=== PATIENT | female | born 1950 | race Caucasian/White ===

== ENCOUNTER → 2018-02-02 | Outpatient (CLI) | payer MEDICARE, OTHER ==
[~2018-02-02] MED LIST: AMIO200T42 PO; ASPI-515 PO; ATOR10TA PO; CARV3.1212 PO; DOXY100C2 PO; ENOX80SY4 SQ; LAMO100T5 PO; LEVE500T53 PO; LEVE750T37 PO; LEVO75TA PO; LISI-466 PO; MULT-224 PO; MULT-464 PO; OXYC5TAB3 PO; POLY17PO5 PO; SERT100T PO; SULF1TAB23 PO; WARF4TAB PO
== END ==
LOC: CFH 15:40
PROVIDERS: ATTEND Internal Medicine Geriatric Medicine
DX: S32.391A Other fracture of right ilium, initial encounter for closed fracture (principal); X58.XXXA Exposure to other specified factors, initial encounter; Y93.89 Activity, other specified; Y92.89 Other specified places as the place of occurrence of the external cause; Y99.8 Other external cause status

== ENCOUNTER → 2018-02-17 | Outpatient (CLI) | payer MEDICARE, OTHER ==
[2018-02-17 15:38] LABS: MEAN CORPUSCULAR HEMOGLOBIN 33.3 pg (27.0-34.8); MEAN CORPUSCULAR HGB CONC 32.3 g/dL (32.4-35.8); MEAN PLATELET VOLUME 7.9 fL (7.4-10.4); PLATELET COUNT 221 x10^3/uL (130-400); RED BLOOD COUNT 3.19 x10^6/uL (3.82-5.3); RED CELL DISTRIBUTION WIDTH 15.8 % (9.6-15.2)
[2018-02-17 15:44] LABS: ALANINE AMINOTRANSFERASE 21 U/L (12-78); ALBUMIN 4.2 g/dL (3.4-5.0); ANION GAP 9 mmol/L (5-15); CALCIUM 8.5 mg/dL (8.5-10.1); CHLORIDE 102 mmol/L (98-107); CREATININE 1.45 mg/dL (0.55-1.02)
[2018-02-17 15:46] LABS: ALKALINE PHOSPHATASE 83 U/L (45-117); BILIRUBIN,TOTAL 0.4 mg/dL (0.2-1.0); TOTAL PROTEIN 7.6 g/dL (6.4-8.2)
== END | disposition home or self-care (01) ==
LOC: CFH 14:09
PROVIDERS: ATTEND Internal Medicine Cardiovascular Disease
DX: D64.9 Anemia, unspecified (principal)
CPT/HCPCS: 36415; 80053; 85027

== ENCOUNTER → 2018-07-18 | Outpatient (CLI) | payer MEDICARE, OTHER ==
[~2018-07-18] MED LIST changes: +REGADENOSON 0.4 MG/5 ML SYRINGE ONE
== END | disposition home or self-care (01) ==
LOC: CFH 07:15
PROVIDERS: ATTEND Internal Medicine Cardiovascular Disease
DX: I08.3 Combined rheumatic disorders of mitral, aortic and tricuspid valves (principal); I25.2 Old myocardial infarction; Z95.2 Presence of prosthetic heart valve
CPT/HCPCS: 78452; 93017; 93306; A9502; J2785

== ENCOUNTER → 2018-10-19 | Outpatient (CLI) | payer MEDICARE, OTHER ==
[~2018-10-19] MED LIST changes: +AMOX-291 PO; +CARV6.2512 PO; +FURO20TA3 PO; +GLUC1CAP18 PO; +OMEP-110 PO; +POTA10TA5 PO; -REGADENOSON 0.4 MG/5 ML SYRINGE ONE; +SULF-169 PO; +VITA400C43 PO
== END | disposition home or self-care (01) ==
LOC: LAB 13:15
PROVIDERS: ATTEND Psychiatry & Neurology Neurology
DX: G40.89 Other seizures (principal); I50.9 Heart failure, unspecified
CPT/HCPCS: 36415; 80175

== ENCOUNTER → 2018-10-19 | Outpatient (CLI) | payer MEDICARE, OTHER ==
[2018-10-19 13:40] LABS: BASOPHILS # (AUTO) 0.02 x10^3/uL (0-0.1); BASOPHILS % (AUTO) 0 % (0-1); EOSINOPHILS # (AUTO) 0.04 x10^3/uL (0-0.4); EOSINOPHILS % (AUTO) 0 % (1-7); LYMPHOCYTES # (AUTO) 0.53 x10^3/uL (1-3.4); LYMPHOCYTES % (AUTO) 6 % (22-44); MD NO; MEAN CORPUSCULAR HEMOGLOBIN 30.8 pg (27.0-34.8); MEAN CORPUSCULAR HGB CONC 32.5 g/dL (32.4-35.8); MEAN PLATELET VOLUME 7.9 fL (7.4-10.4); MONOCYTES # (AUTO) 0.62 x10^3/uL (0.2-0.8); MONOCYTES % (AUTO) 6 % (2-9); NEUTROPHILS % (AUTO) 88 % (42-75); PLATELET COUNT 147 x10^3/uL (130-400); RED BLOOD COUNT 3.55 x10^6/uL (3.82-5.3); RED CELL DISTRIBUTION WIDTH 16.2 % (9.6-15.2)
[2018-10-19 13:48] LABS: ALANINE AMINOTRANSFERASE 28 U/L (12-78); ALBUMIN 3.9 g/dL (3.4-5.0); ANION GAP 5 mmol/L (5-15); CHLORIDE 100 mmol/L (98-107); CHOLESTEROL, TOTAL 104 mg/dL (140-239); CREATININE 0.84 mg/dL (0.55-1.02)
[2018-10-19 13:52] LABS: INTERNATIONAL NORMALIZED RATIO 2.92 (0.93-1.1); PROTHROMBIN TIME 29.7 Seconds (9.6-11.5)
[2018-10-19 14:00] LABS: ALKALINE PHOSPHATASE 116 U/L (45-117); BILIRUBIN,TOTAL 0.8 mg/dL (0.2-1.0); CHOL/HDL RATIO 2.5; HDL CHOL % 40 % (28-40); HDL CHOLESTEROL (DIRECT) 42 mg/dL (40-60); LDL CHOLESTEROL,CALCULATED 52 mg/dL (54-169); LDL/HDL RATIO 1.2 (0.5-3.0); TOTAL PROTEIN 7.7 g/dL (6.4-8.2); TRIGLYCERIDES 50 mg/dL (50-200); VLDL CHOLESTEROL 10 mg/dL (0-25)
== END | disposition home or self-care (01) ==
LOC: STAR 11:36
PROVIDERS: ATTEND Internal Medicine Cardiovascular Disease
DX: Z01.818 Encounter for other preprocedural examination (principal); T82.191A Other mechanical complication of cardiac pulse generator (battery), initial encounter; I48.2 Chronic atrial fibrillation; Y84.8 Other medical procedures as the cause of abnormal reaction of the patient, or of later complication, without mention of misadventure at the time of the procedure
CPT/HCPCS: 36415; 71046; 80053; 80061; 84443; 85025; 85610; 85730

== ENCOUNTER 2018-10-24 09:51 | Day surgery (SDC) | payer MEDICARE, OTHER ==
[~2018-10-24] VITALS: Ht 175.3 cm; Wt 75.0 kg
[~2018-10-24 09:51] MED LIST changes: -MULT-224 PO; +MULT-642 PO
[2018-10-24] MEDS ORDERED: SODIUM CHLORIDE 0.9% 1,000 ML IV SCH (10:12)
[2018-10-24] MEDS ORDERED: VANCOMYCIN PMX 1GM/200ML 200 ML IVPB SCH (10:30)
[2018-10-24] MEDS ORDERED: MIDAZOLAM 1 MG/ML, 2ML ONE (11:36)
[2018-10-24] MEDS ORDERED: FENTANYL PF 100 MCG/2ML ONE (11:37)
[2018-10-24] MEDS ORDERED: VANCOMYCIN PMX 1GM/200ML 200 ML ONE (11:37)
[2018-10-24] MEDS ORDERED: VANCOMYCIN 500 MG ONE (11:37)
[2018-10-24] MEDS ORDERED: LIDOCAINE 1%, 20ML ONE (11:55)
[2018-10-24 12:03] LABS: INTERNATIONAL NORMALIZED RATIO 1.42 (0.93-1.1); PROTHROMBIN TIME 14.9 Seconds (9.6-11.5)
[2018-10-24] MEDS ORDERED: HYDROcodone/APAP 5/325 TABLET PO PRN (12:30)
[2018-10-24] MEDS ORDERED: HOLD MEDICATION MC PRN (12:30)
== END 2018-10-24 15:17 | disposition home or self-care (01) ==
LOC: CACL 09:51
PROVIDERS: ATTEND Internal Medicine Cardiovascular Disease
DX: Z45.02 Encounter for adjustment and management of automatic implantable cardiac defibrillator (principal); I25.10 Atherosclerotic heart disease of native coronary artery without angina pectoris; I48.2 Chronic atrial fibrillation; E03.9 Hypothyroidism, unspecified; I34.0 Nonrheumatic mitral (valve) insufficiency; D64.9 Anemia, unspecified; E11.9 Type 2 diabetes mellitus without complications; Z79.82 Long term (current) use of aspirin; Z95.4 Presence of other heart-valve replacement; Z79.899 Other long term (current) drug therapy; Z79.01 Long term (current) use of anticoagulants; Z86.73 Personal history of transient ischemic attack (TIA), and cerebral infarction without residual deficits; Z95.810 Presence of automatic (implantable) cardiac defibrillator; Z79.84 Long term (current) use of oral hypoglycemic drugs
CPT/HCPCS: 33263; 36415; 85610; 99156; C1721; J2250; J3010; J3370; J3490

== ENCOUNTER 2019-01-29 13:48 | Inpatient (IN) | payer MEDICARE, OTHER ==
[~2019-01-29] VITALS: Ht 175.3 cm; Wt 72.1 kg
[2019-01-29 14:20] LABS: BASOPHILS # (AUTO) 0.01 x10^3/uL (0-0.1); BASOPHILS % (AUTO) 0 % (0-1); EOSINOPHILS # (AUTO) 0.03 x10^3/uL (0-0.4); EOSINOPHILS % (AUTO) 1 % (1-7); LYMPHOCYTES # (AUTO) 0.86 x10^3/uL (1-3.4); LYMPHOCYTES % (AUTO) 17 % (22-44); MD NO; MEAN CORPUSCULAR HEMOGLOBIN 29.3 pg (27.0-34.8); MEAN CORPUSCULAR HGB CONC 31.3 g/dL (32.4-35.8); MEAN CORPUSCULAR VOLUME 93.7 fL (80-100); MONOCYTES # (AUTO) 0.71 x10^3/uL (0.2-0.8); MONOCYTES % (AUTO) 14 % (2-9); NEUTROPHILS # (AUTO) 3.47 x10^3/uL (1.8-6.8); NEUTROPHILS % (AUTO) 68 % (42-75); PLATELET COUNT 177 x10^3/uL (130-400); RED BLOOD COUNT 2.49 x10^6/uL (3.82-5.3); RED CELL DISTRIBUTION WIDTH 19.9 % (9.6-15.2)
[2019-01-29 14:28] LABS: INTERNATIONAL NORMALIZED RATIO 3.2 (0.93-1.1); PROTHROMBIN TIME 32.1 Seconds (9.6-11.5)
[2019-01-29 14:31] LABS: CHLORIDE 103 mmol/L (98-107)
[2019-01-29 14:36] LABS: ALBUMIN 3.8 g/dL (3.4-5.0); ANION GAP 4 mmol/L (5-15); CALCIUM 8.6 mg/dL (8.5-10.1); CREATININE 1.21 mg/dL (0.55-1.02)
[2019-01-29 16:08] LABS: TROPONIN I < 0.015 ng/mL (0.000-0.045)
--- NOTE | 2019-01-29 16:58 | NUR ---
PATIENT PLACED IN RECHECK. STABLE AND APPEARS COMFORTABLE IN BED. HEATER GIVEN. AT BS
[2019-01-29] MEDS ORDERED: FURO-93 PO (17:51)
[2019-01-29] MEDS ORDERED: CARV6.2512 PO (17:51)
--- NOTE | 2019-01-29 18:13 | NUR ---
PATIENT GONE TO CT SCAN. MEDS UPDATE. AWAITING RESULTS. AT BEDSIDE.
[2019-01-29] MEDS ORDERED: OMNIPAQUE 350 MG/ML, 100ML BOTTLE ONE (18:15)
--- NOTE | 2019-01-29 18:41 | NUR ---
PATIENT PLACED IN RECHECK
--- NOTE | 2019-01-29 19:16 | NUR ---
Pt taken off O2 for room air sats, pts sats 85-90%, notified, pt back on o2 via nc 2l
[2019-01-29] MEDS ORDERED: CEFTRIAXONE PMX 1GM/50ML 50 ML ONE (19:28)
[2019-01-29] MEDS ORDERED: CEFTRIAXONE PMX 1GM/50ML 50 ML IV ONE (19:30)
--- NOTE | 2019-01-29 19:48 | NUR ---
Pt given food per request. Updated on poc (admit) denies any other needs/concerns at thistime
[2019-01-29] MEDS ORDERED: OXYcodone IR 5MG TABLET PO PRN (20:30)
[2019-01-29] MEDS ORDERED: ONDANSETRON ODT 4 MG PO PRN (20:30)
[2019-01-29] MEDS ORDERED: ACETAMINOPHEN 325 MG TABLET PO PRN (20:30)
[2019-01-29] MEDS ORDERED: POLYETHYLENE GLYCOL 17 GM PACKET PO PRN (20:30)
[2019-01-29] MEDS ORDERED: BISACODYL 10 MG SUPP PR PRN (20:30)
[2019-01-29 20:58] VITALS: BP 94/56
[2019-01-29] MEDS ORDERED: SERTRALINE 100MG TABLET PO SCH (21:00)
[2019-01-29] MEDS ORDERED: TEMPLATE NON-FORMULARY MED. (Gluc Hcl/Csa/Coll Hy/Hyalur Ac** (Glucosamine Chondroitin Cap PO SCH (21:00)
[2019-01-29 21:02] VITALS: BP 88/54
[2019-01-29 21:04] VITALS: BP 92/57
[2019-01-29] MEDS ORDERED: DOXYCYCLINE 100MG TABLET ONE (22:07)
[2019-01-29] MEDS: FUROSEMIDE 20 MG TABLET PO SCH (22:19)
[2019-01-29] MEDS: CEFTRIAXONE PMX 1GM/50ML 50 ML IV SCH (22:19)
[2019-01-29] MEDS: DOXYCYCLINE 100 MG in DEXTROSE 5% 250 ML IV SCH (22:24)
[2019-01-29] MEDS: CARVEDILOL 6.25 MG TABLET PO SCH (22:25)
[2019-01-29] MEDS: SODIUM CHLORIDE FLUSH 10ML SYR IVF SCH (22:25)
[2019-01-29] MEDS: ATORVASTATIN 10 MG TABLET PO SCH (22:26)
[2019-01-29] MEDS: OMEPRAZOLE 20 MG CAPSULE.DR PO SCH (22:26)
[2019-01-29] MEDS: LAMOTRIGINE 100 MG TABLET PO SCH (22:26)
[2019-01-30] VITALS (7 sets, daily range): BP systolic 96–112; BP diastolic 52–65
[2019-01-30] MEDS ORDERED: DIPHENHYDRAMINE 25 MG CAPSULE PO ONE
[2019-01-30 05:32] LABS: MEAN CORPUSCULAR HEMOGLOBIN 29.9 pg (27.0-34.8); MEAN CORPUSCULAR VOLUME 93.3 fL (80-100); PLATELET COUNT 153 x10^3/uL (130-400); RED BLOOD COUNT 2.45 x10^6/uL (3.82-5.3); RED CELL DISTRIBUTION WIDTH 18.4 % (9.6-15.2)
[2019-01-30 05:36] LABS: INTERNATIONAL NORMALIZED RATIO 2.91 (0.93-1.1); PROTHROMBIN TIME 29.3 Seconds (9.6-11.5)
[2019-01-30 05:42] LABS: ALBUMIN 3.2 g/dL (3.4-5.0); ANION GAP 3 mmol/L (5-15); CALCIUM 8.2 mg/dL (8.5-10.1); CHLORIDE 103 mmol/L (98-107)
[2019-01-30 05:49] LABS: ALANINE AMINOTRANSFERASE 22 U/L (12-78); ALKALINE PHOSPHATASE 107 U/L (45-117); BILIRUBIN,TOTAL 1.4 mg/dL (0.2-1.0); CREATININE 0.96 mg/dL (0.55-1.02); TOTAL PROTEIN 6.3 g/dL (6.4-8.2); TROPONIN I 0.019 ng/mL (0.000-0.045)
[2019-01-30 06:02] LABS: BASOPHILS # (AUTO) 0.02 x10^3/uL (0-0.1); BASOPHILS % (AUTO) 0 % (0-1); EOSINOPHILS # (AUTO) 0.05 x10^3/uL (0-0.4); EOSINOPHILS % (AUTO) 1 % (1-7); LYMPHOCYTES # (AUTO) 0.98 x10^3/uL (1-3.4); LYMPHOCYTES % (AUTO) 20 % (22-44); MD SCAN; MONOCYTES # (AUTO) 0.79 x10^3/uL (0.2-0.8); MONOCYTES % (AUTO) 16 % (2-9); NEUTROPHILS # (AUTO) 3.06 x10^3/uL (1.8-6.8); NEUTROPHILS % (AUTO) 63 % (42-75)
[2019-01-30] MEDS: MULTIVITAMINS/MINERALS TABLET PO SCH (07:48)
[2019-01-30] MEDS: POTASSIUM CHLORIDE 10 MEQ TABLET.ER PO SCH (07:48)
[2019-01-30] MEDS: FUROSEMIDE 20 MG TABLET PO SCH ×2 (07:48→20:15)
[2019-01-30] MEDS: LEVOTHYROXINE 75 MCG TABLET PO SCH (07:48)
[2019-01-30] MEDS: SENNA/DOCUSATE TABLET PO SCH (07:49)
[2019-01-30] MEDS: SODIUM CHLORIDE FLUSH 10ML SYR IVF SCH ×2 (07:49→20:14)
[2019-01-30] MEDS: CARVEDILOL 6.25 MG TABLET PO SCH ×2 (07:49→20:15)
[2019-01-30] MEDS: DOXYCYCLINE 100 MG in DEXTROSE 5% 250 ML IV SCH ×2 (09:22→22:00)
[2019-01-30 11:42] LABS: TROPONIN I 0.028 ng/mL (0.000-0.045)
[2019-01-30 12:08] LABS: BASOPHILS # (AUTO) 0.02 x10^3/uL (0-0.1); BASOPHILS % (AUTO) 0 % (0-1); EOSINOPHILS # (AUTO) 0.05 x10^3/uL (0-0.4); EOSINOPHILS % (AUTO) 1 % (1-7); LYMPHOCYTES # (AUTO) 0.65 x10^3/uL (1-3.4); LYMPHOCYTES % (AUTO) 12 % (22-44); MD NO; MEAN CORPUSCULAR HEMOGLOBIN 30.5 pg (27.0-34.8); MEAN CORPUSCULAR HGB CONC 32.5 g/dL (32.4-35.8); MEAN CORPUSCULAR VOLUME 93.8 fL (80-100); MEAN PLATELET VOLUME 8.1 fL (7.4-10.4); MONOCYTES # (AUTO) 0.79 x10^3/uL (0.2-0.8); MONOCYTES % (AUTO) 15 % (2-9); NEUTROPHILS # (AUTO) 3.92 x10^3/uL (1.8-6.8); NEUTROPHILS % (AUTO) 72 % (42-75); PLATELET COUNT 153 x10^3/uL (130-400); RED CELL DISTRIBUTION WIDTH 18.6 % (9.6-15.2)
[2019-01-30] MEDS ORDERED: WARFARIN 2 MG TABLET PO-COUM ONE (18:00)
[2019-01-30] MEDS: CEFTRIAXONE PMX 1GM/50ML 50 ML IV SCH (20:14)
[2019-01-30] MEDS: ATORVASTATIN 10 MG TABLET PO SCH (20:15)
[2019-01-30] MEDS: LAMOTRIGINE 100 MG TABLET PO SCH (20:15)
[2019-01-30] MEDS: OMEPRAZOLE 20 MG CAPSULE.DR PO SCH (20:15)
[2019-01-30] MEDS: SULFAMETH./TRIMETHOPRIM DS 800MG/160MG TABLET PO SCH (20:16)
[2019-01-30] MEDS: SERTRALINE 100MG TABLET PO SCH (20:16)
[2019-01-31 02:23] VITALS: BP 98/52
[2019-01-31 06:53] VITALS: BP 101/64
[2019-01-31] MEDS: FUROSEMIDE 20 MG TABLET PO SCH ×2 (07:54→20:28)
[2019-01-31] MEDS: SODIUM CHLORIDE FLUSH 10ML SYR IVF SCH ×2 (07:54→20:27)
[2019-01-31] MEDS: MULTIVITAMINS/MINERALS TABLET PO SCH (07:54)
[2019-01-31] MEDS: CARVEDILOL 6.25 MG TABLET PO SCH ×3 (07:54→20:27)
[2019-01-31] MEDS: LEVOTHYROXINE 75 MCG TABLET PO SCH (07:54)
[2019-01-31] MEDS: SENNA/DOCUSATE TABLET PO SCH (07:54)
[2019-01-31] MEDS: POTASSIUM CHLORIDE 10 MEQ TABLET.ER PO SCH (07:54)
[2019-01-31 07:55] VITALS: BP 97/59
[2019-01-31] MEDS: DOXYCYCLINE 100 MG in DEXTROSE 5% 250 ML IV SCH ×2 (09:04→23:25)
[2019-01-31 09:44] LABS: INTERNATIONAL NORMALIZED RATIO 2.07 (0.93-1.1); PROTHROMBIN TIME 21.1 Seconds (9.6-11.5)
[2019-01-31 14:24] VITALS: BP 98/57
[2019-01-31 16:27] VITALS: BP 87/51
[2019-01-31 18:58] VITALS: BP 111/72
[2019-01-31] MEDS ORDERED: WARFARIN 5 MG TABLET PO-COUM ONE (19:12)
[2019-01-31] MEDS: SULFAMETH./TRIMETHOPRIM DS 800MG/160MG TABLET PO SCH (20:26)
[2019-01-31] MEDS: CEFTRIAXONE PMX 1GM/50ML 50 ML IV SCH (20:26)
[2019-01-31] MEDS: LAMOTRIGINE 100 MG TABLET PO SCH (20:28)
[2019-01-31] MEDS: ATORVASTATIN 10 MG TABLET PO SCH (20:28)
[2019-01-31] MEDS: OMEPRAZOLE 20 MG CAPSULE.DR PO SCH (20:28)
[2019-01-31] MEDS: SERTRALINE 100MG TABLET PO SCH (20:29)
[2019-02-01] VITALS (11 sets, daily range): BP systolic 90–99; BP diastolic 50–62
[2019-02-01 06:23] LABS: INTERNATIONAL NORMALIZED RATIO 1.83 (0.93-1.1); PROTHROMBIN TIME 18.8 Seconds (9.6-11.5)
[2019-02-01] MEDS ORDERED: CEFD300C37 PO (08:57)
[2019-02-01] MEDS ORDERED: DOXY100T10 PO (08:57)
[2019-02-01] MEDS ORDERED: ACETAMINOPHEN 325 MG TABLET PO ONE (09:00)
[2019-02-01] MEDS: CARVEDILOL 6.25 MG TABLET PO SCH ×2 (09:00→16:00)
[2019-02-01] MEDS ORDERED: DIPHENHYDRAMINE 12.5MG/5ML, 10ML UDC PO ONE (09:00)
[2019-02-01] MEDS: DOXYCYCLINE 100 MG in DEXTROSE 5% 250 ML IV SCH (10:00)
[2019-02-01] MEDS: FUROSEMIDE 20 MG TABLET PO SCH (10:13)
[2019-02-01] MEDS: SENNA/DOCUSATE TABLET PO SCH (10:17)
[2019-02-01] MEDS: LEVOTHYROXINE 75 MCG TABLET PO SCH (10:18)
[2019-02-01] MEDS: MULTIVITAMINS/MINERALS TABLET PO SCH (10:18)
[2019-02-01] MEDS: SODIUM CHLORIDE FLUSH 10ML SYR IVF SCH (10:18)
[2019-02-01] MEDS: POTASSIUM CHLORIDE 10 MEQ TABLET.ER PO SCH (10:18)
[2019-02-01] MEDS ORDERED: WARFARIN 7.5 MG TABLET PO-COUM ONE (18:00)
== END 2019-02-01 21:19 | disposition home or self-care (01) | DRG 871 ==
LOC: ED 19:13 → EDIP 19:18 → 5SO 20:46
PROVIDERS: ADMIT Family Medicine; ATTEND Family Medicine
PROC: 30233N1 Transfusion of Nonautologous Red Blood Cells into Peripheral Vein, Percutaneous Approach (ICD-10-PCS; principal; 2019-01-30)
DX: A41.9 Sepsis, unspecified organism (principal); J18.9 Pneumonia, unspecified organism; I50.22 Chronic systolic (congestive) heart failure; D68.69 Other thrombophilia; I27.20 Pulmonary hypertension, unspecified; E03.9 Hypothyroidism, unspecified; E78.5 Hyperlipidemia, unspecified; F03.90 Unspecified dementia, unspecified severity, without behavioral disturbance, psychotic disturbance, mood disturbance, and anxiety; F41.1 Generalized anxiety disorder; G40.909 Epilepsy, unspecified, not intractable, without status epilepticus; I48.2 Chronic atrial fibrillation; I77.819 Aortic ectasia, unspecified site; M40.209 Unspecified kyphosis, site unspecified; R09.02 Hypoxemia; S70.02XA Contusion of left hip, initial encounter; W18.39XA Other fall on same level, initial encounter; Y93.89 Activity, other specified; Y92.89 Other specified places as the place of occurrence of the external cause; Y99.8 Other external cause status; Z79.01 Long term (current) use of anticoagulants; Z83.3 Family history of diabetes mellitus; Z86.14 Personal history of Methicillin resistant Staphylococcus aureus infection; Z86.73 Personal history of transient ischemic attack (TIA), and cerebral infarction without residual deficits; Z86.74 Personal history of sudden cardiac arrest; Z95.2 Presence of prosthetic heart valve; Z95.810 Presence of automatic (implantable) cardiac defibrillator; D64.9 Anemia, unspecified
CPT/HCPCS: 36415; 36430; 71045; 71275; 80048; 80053; 82040; 83605; 83880; 84484; 85014; 85018; 85025; 85610; 86850; 86900; 86923; 87040; 87070; 87205; 93005; G0378; J0696; J7060; Q9967; P9016; Q0163